=== PATIENT | female | born 2000 | race Caucasian/White ===

== ENCOUNTER 2022-04-30 17:20 | Emergency (ER) | payer BC ==
[~2022-04-30] VITALS: Ht 160 cm; Wt 65.8 kg
[2022-04-30 17:28] VITALS: BP_SYST 118
[2022-04-30 18:50] LABS: CALCIUM 7.7 mg/dL (8.4-11.0); CREATININE 0.73 mg/dL (0.55-1.30); POTASSIUM 3.3 mmol/L (3.5-5.1)
[2022-04-30 18:56] LABS: ALBUMIN 3.9 g/dL (3.4-4.8); TOTAL BILIRUBIN 0.3 mg/dL (0.0-1.0)
[2022-04-30] MEDS ORDERED: CALCIUM GLUCONATE 2 GM in NS 100 ML IV ONE (19:45)
[2022-04-30] MEDS ORDERED: CALCIUM GLUCONATE 1 GM/10 ML VIAL ONE (19:56)
[2022-04-30 23:00] VITALS: BP_SYST 118
== END 2022-04-30 22:00 | disposition home or self-care (01) ==
LOC: SED 17:20
DX: E83.51 Hypocalcemia (principal); E89.0 Postprocedural hypothyroidism; Z85.850 Personal history of malignant neoplasm of thyroid; Z79.899 Other long term (current) drug therapy
CPT/HCPCS: 99284; 96365; 80053; 36415; J0610